=== PATIENT | female | born 2000 | race Caucasian/White ===

== ENCOUNTER 2021-05-08 15:11 | Emergency (ER) | payer BC ==
[~2021-05-08] VITALS: Ht 167.6 cm; Wt 104.5 kg
[2021-05-08 15:31] VITALS: TEMP 102.7
[2021-05-08 16:19] LABS: HEMATOCRIT 44.6 % (35.0-45.0); HEMOGLOBIN 15.1 g/dl (12.0-15.0); MEAN CELL VOLUME 87 fl (80.0-95.0); MEAN CORPUSCULAR HEMOGLOBIN 30 pg (26.0-32.0); MEAN CORPUSCULAR HGB CONC 34 g/dl (33.0-37.0); MEAN PLATELET VOLUME 10.4 fl (7.4-10.4); PLATELET COUNT 223 K/mm3 (130-400); RED BLOOD COUNT 5.12 M/mm3 (4.10-5.30); REDCELL DISTRIBUTION WIDTH-CV 12.3 % (11.5-14.5)
[2021-05-08 16:30] LABS: CALCIUM 9.2 mg/dL (8.4-10.2); CREATININE, serum 0.77 mg/dL (0.57-1.11); POTASSIUM 3.7 mmol/L (3.5-4.5)
[2021-05-08 16:52] LABS: BAND 8 % (0-10); LYMPHOCYTE 23 % (20.0-51.0); NEUTROPHILS 63 % (42.0-75.2); PLATELET ESTIMATE NORMAL (NORMAL)
[2021-05-08] MEDS ORDERED: ZOFRAN ODT4 MG PO (17:48)
[2021-05-08 18:15] VITALS: BP 133/79; PULSE 90
== END 2021-05-08 18:15 | disposition home or self-care (01) ==
LOC: COL.ER 15:11
PROVIDERS: Emergency Medicine
DX: U07.1 COVID-19 (principal); J12.82 Pneumonia due to coronavirus disease 2019; R79.1 Abnormal coagulation profile; Z73.0 Burn-out
CPT/HCPCS: J2405; J7030; Q9967